=== PATIENT | male | born 1940 | race Caucasian/White ===

== ENCOUNTER 2017-08-11 14:33 | Inpatient (IN) | payer MEDICARE ==
[~2017-08-11] VITALS: Ht 177.8 cm; Wt 89.9 kg
[~2017-08-11 14:33] MED LIST: AMIO200T42 PO; AMIO400T5 PO; ARGI1000 PO; ASCO500T7 PO; ASPI-621 PO; ATOR40TA PO; CHOL400T5 PO; CYAN100T PO; DIGO125T10 PO; ESOM40CA PO; FERR47.57 PO; FOLI-17 PO; FURO40TA6 PO; GLUC1TAB22 PO; HYDR1TAB12 PO; ISOS120T2 PO; LUTE10TA2 PO; MAGN100T6 PO; MULT-257 PO; NITR0.4T28 SL; OMEG-13 PO; POTA10TA11 PO; PYRI100T4 PO; RANO500T2 PO; RIVA20TA PO; SELE200T10 PO; SOTA120T26 PO; UBID200C7 PO; VITA400C43 PO; ZINC220T PO
[2017-08-11] MEDS ORDERED: SODIUM CHLORIDE 0.9% 1,000ML IVBOLUS ONE ×3 (15:00→18:00)
[2017-08-11] MEDS ORDERED: ONDANSETRON 2MG/ML, 2ML IVPush ONE ×2 (15:00→17:30)
[2017-08-11] MEDS ORDERED: SODIUM CHLORIDE FLUSH 10ML SYR IVF ONE (15:00)
[2017-08-11 15:11] LABS: MEAN CORPUSCULAR HEMOGLOBIN 31.7 pg (27.5-34.5); MEAN CORPUSCULAR VOLUME 93.2 fL (81-97); MEAN PLATELET VOLUME 9.8 fL (7.4-10.4); PLATELET COUNT 118 x10^3/uL (130-400); RED BLOOD COUNT 4.62 x10^6/uL (4.38-5.82); RED CELL DISTRIBUTION WIDTH 15.5 % (9.4-14.8)
[2017-08-11] MEDS ORDERED: ATEN25TA PO ×2 (15:15)
[2017-08-11] MEDS ORDERED: ROSU20TA PO (15:15)
[2017-08-11] MEDS ORDERED: OMEP40CA6 PO (15:15)
[2017-08-11] MEDS ORDERED: METF500T4 PO (15:15)
[2017-08-11] MEDS ORDERED: LOSA50TA6 PO (15:15)
[2017-08-11] MEDS ORDERED: FURO-92 PO (15:15)
[2017-08-11 15:22] LABS: INTERNATIONAL NORMALIZED RATIO 1.22 (0.93-1.1); PROTHROMBIN TIME 12.6 Seconds (9.6-11.5)
[2017-08-11 15:23] LABS: ALBUMIN 2.8 g/dL (3.4-5.0); ANION GAP 13 mmol/L (5-15); CALCIUM 8.6 mg/dL (8.5-10.1); CHLORIDE 96 mmol/L (98-107)
[2017-08-11 15:25] LABS: MD YES
[2017-08-11 15:27] LABS: <PLATELET ESTIMATE> ADEQUATE; <PLT MORPHOLOGY> NORMAL PLT MORPH; ANISOCYTOSIS 1+; BAND#(MANUAL) 2.42 x10^3/uL; BANDS%(MANUAL) 11 % (0-7); LYMPH#(MANUAL) 1.54 x10^3/uL (1-3.4); LYMPHS% (MANUAL) 7 % (22-44); MONOS#(MANUAL) 0.88 x10^3/uL (0.3-2.7); MONOS% (MANUAL) 4 % (2-9); POLYCHROMASIA 1+; SEG#(MANUAL) 17.16 x10^3/uL (1.8-6.8); SEGS% (MANUAL) 78 % (42-75)
[2017-08-11 15:37] LABS: ALANINE AMINOTRANSFERASE 345 U/L (12-78); ALKALINE PHOSPHATASE 195 U/L (45-117); BILIRUBIN,TOTAL 6.2 mg/dL (0.2-1.0); CREATININE 4.79 mg/dL (0.7-1.3); TOTAL PROTEIN 7.7 g/dL (6.4-8.2)
[2017-08-11] MEDS ORDERED: ONDANSETRON 2MG/ML, 2ML ONE (15:37)
[2017-08-11] MEDS ORDERED: GLUCAGON 1 MG ONE (15:37)
[2017-08-11] MEDS ORDERED: CEFTRIAXONE PMX 1GM/50ML 50 ML ONE (15:38)
[2017-08-11] MEDS ORDERED: CEFTRIAXONE PMX 1GM/50ML 50 ML IVPB ONE (16:00)
[2017-08-11] MEDS ORDERED: NOREPINEPHRINE 4 MG in SODIUM CHLORIDE 0.9% 246 ML IV PRN ×2 (16:00→17:00)
[2017-08-11] MEDS ORDERED: GLUCAGON 1 MG IVPush ONE (16:00)
[2017-08-11] MEDS ORDERED: METRONIDAZOLE PMX 500MG/100ML 100 ML IV ONE (16:30)
[2017-08-11] MEDS ORDERED: MEROPENEM 500 MG in SODIUM CHLORIDE 0.9% 100 ML IV ONE (16:30)
[2017-08-11] MEDS: SODIUM CHLORIDE 0.9% 1,000 ML IV SCH (16:58)
[2017-08-11] MEDS ORDERED: BISACODYL 10 MG SUPP PR PRN (17:00)
[2017-08-11] MEDS ORDERED: HYDROmorphone 2 MG/ML, 1ML IVPush PRN (17:00)
[2017-08-11] MEDS ORDERED: DOCUSATE 100 MG CAPSULE PO PRN (17:00)
[2017-08-11] MEDS: MEROPENEM 500 MG in SODIUM CHLORIDE 0.9% 100 ML IV SCH (17:00)
[2017-08-11] MEDS ORDERED: ACETAMINOPHEN 325 MG TABLET PO PRN (17:00)
[2017-08-11] MEDS ORDERED: MORPHINE SULFATE 4 MG/ML, 1ML ONE (17:21)
[2017-08-11] MEDS: MORPHINE SULFATE 4 MG/ML, 1ML IVPush PRN ×2 (17:23→19:47)
[2017-08-11] MEDS ORDERED: METRONIDAZOLE PMX 500MG/100ML 100 ML ONE (17:49)
[2017-08-11] MEDS: METRONIDAZOLE PMX 500MG/100ML 100 ML IV SCH (17:50)
[2017-08-11 18:00] LABS: THYROID STIMULATING HORMONE 0.853 mIU/L (0.358-3.740)
[2017-08-11] MEDS ORDERED: ANTI INHIBITOR COAGULANT COMP IVPB ONE (19:00)
[2017-08-11] MEDS: HEPARIN 5,000 UNITS/ML, 1ML SQ SCH (19:00)
[2017-08-11] MEDS ORDERED: LIDOCAINE 1%, 20ML ONE (19:03)
[2017-08-11] MEDS: NOREPINEPHRINE 16 MG in SODIUM CHLORIDE 0.9% 234 ML IV PRN (20:02)
[2017-08-11] MEDS: FAMOTIDINE 20 MG/2 ML IVPush SCH (21:01)
[2017-08-11] MEDS ORDERED: FENTANYL PF 100 MCG/2ML ONE (21:24)
[2017-08-11] MEDS ORDERED: FENTANYL PF 100 MCG/2ML IVPush PRN (21:30)
[2017-08-11] MEDS: VASOPRESSIN 100 UNIT in SODIUM CHLORIDE 0.9% 495 ML IV PRN (21:53)
[2017-08-11] MEDS: FENTANYL PF 100 MCG/2ML IVPush PRN (21:57)
[2017-08-11 22:28] LABS: CULTURE INDICATED? YES; MICROSCOPIC INDICATED
[2017-08-12] MEDS: SODIUM CHLORIDE 0.9% 1,000 ML IV SCH ×6 (00:13→23:53)
[2017-08-12] MEDS: FENTANYL PF 100 MCG/2ML IVPush PRN ×7 (00:14→22:10)
[2017-08-12] MEDS: METRONIDAZOLE PMX 500MG/100ML 100 ML IV SCH ×4 (01:06→23:53)
[2017-08-12] MEDS: MEROPENEM 500 MG in SODIUM CHLORIDE 0.9% 100 ML IV SCH ×3 (02:06→22:19)
[2017-08-12 03:31] LABS: ALANINE AMINOTRANSFERASE 841 U/L (12-78); ALBUMIN 2.5 g/dL (3.4-5.0); ANION GAP 12 mmol/L (5-15); CALCIUM 7.4 mg/dL (8.5-10.1); CHLORIDE 106 mmol/L (98-107); CREATININE 5.08 mg/dL (0.7-1.3)
[2017-08-12 03:32] LABS: MEAN CORPUSCULAR HEMOGLOBIN 30.9 pg (27.5-34.5); MEAN CORPUSCULAR VOLUME 93.4 fL (81-97); MEAN PLATELET VOLUME 9.9 fL (7.4-10.4); PLATELET COUNT 124 x10^3/uL (130-400); RED BLOOD COUNT 4.37 x10^6/uL (4.38-5.82); RED CELL DISTRIBUTION WIDTH 15.9 % (9.4-14.8)
[2017-08-12 03:39] LABS: ALKALINE PHOSPHATASE 195 U/L (45-117); BILIRUBIN,TOTAL 5.6 mg/dL (0.2-1.0); TOTAL PROTEIN 6.9 g/dL (6.4-8.2)
[2017-08-12 03:48] LABS: MD YES
[2017-08-12 03:51] LABS: BAND#(MANUAL) 3.21 x10^3/uL; BANDS%(MANUAL) 15 % (0-7); LYMPH#(MANUAL) 1.71 x10^3/uL (1-3.4); LYMPHS% (MANUAL) 8 % (22-44); MONOS#(MANUAL) 0.64 x10^3/uL (0.3-2.7); MONOS% (MANUAL) 3 % (2-9); SEG#(MANUAL) 15.84 x10^3/uL (1.8-6.8); SEGS% (MANUAL) 74 % (42-75)
[2017-08-12 03:52] LABS: ANISOCYTOSIS 1+
[2017-08-12 03:53] LABS: <PLATELET ESTIMATE> DECREASED; LARGE PLATELETS 1+; POLYCHROMASIA 1+
[2017-08-12 04:00] VITALS: BP 113/52
[2017-08-12] MEDS: HEPARIN 5,000 UNITS/ML, 1ML SQ SCH ×2 (06:07→17:09)
[2017-08-12] MEDS: FAMOTIDINE 20 MG/2 ML IVPush SCH (09:45)
[2017-08-12] MEDS: NOREPINEPHRINE 16 MG in SODIUM CHLORIDE 0.9% 234 ML IV PRN ×2 (09:45→19:59)
[2017-08-12] MEDS: LORazepam 2 MG/ML, 1ML IVPush PRN (22:10)
[2017-08-13] MEDS: SODIUM CHLORIDE 0.9% 1,000 ML IV SCH (03:54)
[2017-08-13 04:00] VITALS: BP 110/52
[2017-08-13 04:25] LABS: MEAN CORPUSCULAR HEMOGLOBIN 31.2 pg (27.5-34.5); MEAN CORPUSCULAR HGB CONC 33.3 g/dL (33.2-36.2); MEAN CORPUSCULAR VOLUME 93.7 fL (81-97); RED BLOOD COUNT 3.98 x10^6/uL (4.38-5.82); RED CELL DISTRIBUTION WIDTH 16.1 % (9.4-14.8)
[2017-08-13 04:34] LABS: ALBUMIN 2.2 g/dL (3.4-5.0); ANION GAP 14 mmol/L (5-15); CALCIUM 6.6 mg/dL (8.5-10.1); CHLORIDE 107 mmol/L (98-107); CREATININE 4.99 mg/dL (0.7-1.3)
[2017-08-13 04:46] LABS: ALANINE AMINOTRANSFERASE 1016 U/L (12-78); ALKALINE PHOSPHATASE 192 U/L (45-117); BILIRUBIN,TOTAL 4.4 mg/dL (0.2-1.0); TOTAL PROTEIN 6.5 g/dL (6.4-8.2)
[2017-08-13] MEDS: HEPARIN 5,000 UNITS/ML, 1ML SQ SCH ×2 (05:27→18:22)
[2017-08-13 05:36] LABS: MD YES
[2017-08-13 05:40] LABS: MEAN PLATELET VOLUME 9.6 fL (7.4-10.4); PLATELET COUNT 82 x10^3/uL (130-400)
[2017-08-13 05:41] LABS: BAND#(MANUAL) 0.46 x10^3/uL; BANDS%(MANUAL) 3 % (0-7); MONOS#(MANUAL) 1.23 x10^3/uL (0.3-2.7); MONOS% (MANUAL) 8 % (2-9)
[2017-08-13 05:42] LABS: <PLATELET ESTIMATE> DECREASED; ANISOCYTOSIS 1+; LYMPH#(MANUAL) 2.16 x10^3/uL (1-3.4); LYMPHS% (MANUAL) 14 % (22-44); POLYCHROMASIA 1+; SEG#(MANUAL) 11.55 x10^3/uL (1.8-6.8); SEGS% (MANUAL) 75 % (42-75)
[2017-08-13 05:43] LABS: LARGE PLATELETS 1+
[2017-08-13] MEDS: FENTANYL PF 100 MCG/2ML IVPush PRN ×3 (08:51→18:21)
[2017-08-13] MEDS: METRONIDAZOLE PMX 500MG/100ML 100 ML IV SCH ×2 (13:51→20:39)
[2017-08-13] MEDS: FAMOTIDINE 20 MG/2 ML IVPush SCH (13:52)
[2017-08-13] MEDS: MEROPENEM 500 MG in SODIUM CHLORIDE 0.9% 100 ML IV SCH (16:52)
[2017-08-13] MEDS: LORazepam 2 MG/ML, 1ML IVPush PRN (20:31)
[2017-08-14] MEDS: MEROPENEM 500 MG in SODIUM CHLORIDE 0.9% 100 ML IV SCH ×2 (02:00→14:44)
[2017-08-14 03:45] LABS: MEAN CORPUSCULAR HEMOGLOBIN 31.3 pg (27.5-34.5); MEAN CORPUSCULAR HGB CONC 33.7 g/dL (33.2-36.2); MEAN CORPUSCULAR VOLUME 92.9 fL (81-97); MEAN PLATELET VOLUME 9.5 fL (7.4-10.4); PLATELET COUNT 82 x10^3/uL (130-400); RED BLOOD COUNT 4.11 x10^6/uL (4.38-5.82); RED CELL DISTRIBUTION WIDTH 16.1 % (9.4-14.8)
[2017-08-14 03:49] LABS: MD YES
[2017-08-14 03:50] LABS: ALANINE AMINOTRANSFERASE 817 U/L (12-78); ANION GAP 12 mmol/L (5-15); CALCIUM 7.2 mg/dL (8.5-10.1); CHLORIDE 104 mmol/L (98-107); CREATININE 5.13 mg/dL (0.7-1.3)
[2017-08-14 03:52] LABS: ALKALINE PHOSPHATASE 198 U/L (45-117); BILIRUBIN,TOTAL 3.9 mg/dL (0.2-1.0); TOTAL PROTEIN 6.1 g/dL (6.4-8.2)
[2017-08-14 04:00] VITALS: BP 99/48
[2017-08-14 04:03] LABS: BAND#(MANUAL) 1.27 x10^3/uL; BANDS%(MANUAL) 8 % (0-7); EOS#(MANUAL) 0.16 x10^3/uL (0.0-0.4); EOS% (MANUAL) 1 % (1-7); LYMPH#(MANUAL) 1.59 x10^3/uL (1-3.4); LYMPHS% (MANUAL) 10 % (22-44); MONOS% (MANUAL) 5 % (2-9); SEG#(MANUAL) 12.08 x10^3/uL (1.8-6.8); SEGS% (MANUAL) 76 % (42-75)
[2017-08-14 04:04] LABS: <PLATELET ESTIMATE> DECREASED; ANISOCYTOSIS 1+; LARGE PLATELETS 1+; POLYCHROMASIA 1+
[2017-08-14 04:05] LABS: TOXIC GRAN 1+
[2017-08-14] MEDS: METRONIDAZOLE PMX 500MG/100ML 100 ML IV SCH ×3 (05:22→20:19)
[2017-08-14] MEDS: HEPARIN 5,000 UNITS/ML, 1ML SQ SCH ×2 (05:22→18:02)
[2017-08-14] MEDS: FENTANYL PF 100 MCG/2ML IVPush PRN ×3 (08:03→19:54)
[2017-08-14] MEDS: FAMOTIDINE 20 MG/2 ML IVPush SCH (08:35)
[2017-08-14] MEDS: LORazepam 2 MG/ML, 1ML IVPush PRN (18:02)
[2017-08-15] MEDS: METRONIDAZOLE PMX 500MG/100ML 100 ML IV SCH ×2 (01:26→05:16)
[2017-08-15] MEDS: MEROPENEM 500 MG in SODIUM CHLORIDE 0.9% 100 ML IV SCH (01:51)
[2017-08-15 04:00] VITALS: BP 102/49
[2017-08-15 04:30] LABS: ALANINE AMINOTRANSFERASE 662 U/L (12-78); ANION GAP 10 mmol/L (5-15); CALCIUM 7.6 mg/dL (8.5-10.1); CHLORIDE 101 mmol/L (98-107); CREATININE 5.16 mg/dL (0.7-1.3)
[2017-08-15 04:32] LABS: ALKALINE PHOSPHATASE 197 U/L (45-117); BILIRUBIN,TOTAL 4.4 mg/dL (0.2-1.0); TOTAL PROTEIN 6.1 g/dL (6.4-8.2)
[2017-08-15] MEDS: HEPARIN 5,000 UNITS/ML, 1ML SQ SCH (05:31)
[2017-08-15 05:43] LABS: MEAN CORPUSCULAR HEMOGLOBIN 31.1 pg (27.5-34.5); MEAN CORPUSCULAR HGB CONC 34.3 g/dL (33.2-36.2); MEAN CORPUSCULAR VOLUME 90.6 fL (81-97); RED BLOOD COUNT 4.41 x10^6/uL (4.38-5.82); RED CELL DISTRIBUTION WIDTH 15.9 % (9.4-14.8)
[2017-08-15 05:46] LABS: MD YES; MEAN PLATELET VOLUME 9.1 fL (7.4-10.4); PLATELET COUNT 67 x10^3/uL (130-400)
[2017-08-15 05:47] LABS: BAND#(MANUAL) 0.51 x10^3/uL; BANDS%(MANUAL) 3 % (0-7); EOS#(MANUAL) 0.17 x10^3/uL (0.0-0.4); EOS% (MANUAL) 1 % (1-7); LYMPH#(MANUAL) 1.86 x10^3/uL (1-3.4); LYMPHS% (MANUAL) 11 % (22-44); MONOS#(MANUAL) 1.35 x10^3/uL (0.3-2.7); MONOS% (MANUAL) 8 % (2-9)
[2017-08-15 05:48] LABS: SEG#(MANUAL) 13.01 x10^3/uL (1.8-6.8); SEGS% (MANUAL) 77 % (42-75)
[2017-08-15 05:49] LABS: <PLATELET ESTIMATE> DECREASED; LARGE PLATELETS 1+; TOXIC GRAN 1+
[2017-08-15 05:50] LABS: ANISOCYTOSIS 1+; POLYCHROMASIA 1+
[2017-08-15] MEDS: FENTANYL PF 100 MCG/2ML IVPush PRN ×3 (08:05→22:22)
[2017-08-15] MEDS: FAMOTIDINE 20 MG/2 ML IVPush SCH (08:05)
[2017-08-15] MEDS ORDERED: CEFTRIAXONE PMX 2GM/50ML 50 ML IVPB SCH (09:30)
[2017-08-15 14:53] LABS: HIT RESULT NEGATIVE (NEGATIVE)
[2017-08-16 04:00] VITALS: BP 127/72
[2017-08-16] MEDS: FENTANYL PF 100 MCG/2ML IVPush PRN ×2 (04:14→22:17)
[2017-08-16 04:35] LABS: MEAN CORPUSCULAR HEMOGLOBIN 31.8 pg (27.5-34.5); MEAN CORPUSCULAR HGB CONC 34.8 g/dL (33.2-36.2); MEAN CORPUSCULAR VOLUME 91.4 fL (81-97); RED BLOOD COUNT 4.28 x10^6/uL (4.38-5.82); RED CELL DISTRIBUTION WIDTH 15.8 % (9.4-14.8)
[2017-08-16 04:39] LABS: ALANINE AMINOTRANSFERASE 472 U/L (12-78); ALBUMIN 1.8 g/dL (3.4-5.0); ANION GAP 12 mmol/L (5-15); CALCIUM 7.3 mg/dL (8.5-10.1); CHLORIDE 105 mmol/L (98-107); CREATININE 4.55 mg/dL (0.7-1.3)
[2017-08-16 04:41] LABS: ALKALINE PHOSPHATASE 182 U/L (45-117); BILIRUBIN,TOTAL 3.8 mg/dL (0.2-1.0); TOTAL PROTEIN 5.9 g/dL (6.4-8.2)
[2017-08-16 05:05] LABS: MD YES; MEAN PLATELET VOLUME 9.5 fL (7.4-10.4); PLATELET COUNT 65 x10^3/uL (130-400)
[2017-08-16 05:06] LABS: BAND#(MANUAL) 0.72 x10^3/uL; BANDS%(MANUAL) 4 % (0-7); EOS#(MANUAL) 0.36 x10^3/uL (0.0-0.4); EOS% (MANUAL) 2 % (1-7); LYMPH#(MANUAL) 1.97 x10^3/uL (1-3.4); LYMPHS% (MANUAL) 11 % (22-44); MONOS#(MANUAL) 1.07 x10^3/uL (0.3-2.7); MONOS% (MANUAL) 6 % (2-9)
[2017-08-16 05:07] LABS: <PLATELET ESTIMATE> DECREASED; ANISOCYTOSIS 1+; BASOS#(MANUAL) 0.18 x10^3/uL (0-0.1); BASOS% (MANUAL) 1 % (0-1); LARGE PLATELETS 1+; POLYCHROMASIA 1+; SEGS% (MANUAL) 76 % (42-75)
[2017-08-16] MEDS: FAMOTIDINE 20 MG/2 ML IVPush SCH (08:51)
[2017-08-16] MEDS: OXYcodone IR 5MG TABLET PO PRN (08:51)
[2017-08-16] MEDS: POTASSIUM CHLORIDE 10% 40 MEQ/30 ML UDC PO SCH ×2 (08:51→21:31)
[2017-08-16] MEDS: CEFTRIAXONE 2,000 MG in DEXTROSE 5% 50 ML IVPB SCH (08:53)
[2017-08-16] MEDS: METRONIDAZOLE PMX 500MG/100ML 100 ML IV SCH ×2 (10:21→17:30)
[2017-08-17] MEDS: METRONIDAZOLE PMX 500MG/100ML 100 ML IV SCH ×3 (01:27→17:58)
[2017-08-17 03:42] LABS: MEAN CORPUSCULAR HEMOGLOBIN 30.9 pg (27.5-34.5); MEAN CORPUSCULAR HGB CONC 34.1 g/dL (33.2-36.2); MEAN CORPUSCULAR VOLUME 90.4 fL (81-97); RED BLOOD COUNT 4.51 x10^6/uL (4.38-5.82); RED CELL DISTRIBUTION WIDTH 16.2 % (9.4-14.8)
[2017-08-17 03:52] LABS: ALANINE AMINOTRANSFERASE 363 U/L (12-78); ALBUMIN 2.1 g/dL (3.4-5.0); ANION GAP 11 mmol/L (5-15); CALCIUM 8.6 mg/dL (8.5-10.1); CHLORIDE 103 mmol/L (98-107)
[2017-08-17 03:54] LABS: ALKALINE PHOSPHATASE 173 U/L (45-117); BILIRUBIN,TOTAL 3.9 mg/dL (0.2-1.0); TOTAL PROTEIN 6.6 g/dL (6.4-8.2)
[2017-08-17 03:56] LABS: MD YES; MEAN PLATELET VOLUME 9.9 fL (7.4-10.4); PLATELET COUNT 87 x10^3/uL (130-400)
[2017-08-17 03:59] LABS: BAND#(MANUAL) 0.56 x10^3/uL; BANDS%(MANUAL) 3 % (0-7); EOS#(MANUAL) 0.38 x10^3/uL (0.0-0.4); EOS% (MANUAL) 2 % (1-7); LYMPH#(MANUAL) 3.01 x10^3/uL (1-3.4); LYMPHS% (MANUAL) 16 % (22-44); MONOS#(MANUAL) 0.56 x10^3/uL (0.3-2.7); MONOS% (MANUAL) 3 % (2-9); SEG#(MANUAL) 14.29 x10^3/uL (1.8-6.8); SEGS% (MANUAL) 76 % (42-75)
[2017-08-17 04:00] VITALS: BP 115/54
[2017-08-17 04:00] LABS: <PLATELET ESTIMATE> DECREASED; ANISOCYTOSIS 1+; LARGE PLATELETS 1+; POLYCHROMASIA 1+
[2017-08-17] MEDS: PANTOPRAZOLE 40 MG IV IVPush SCH (08:12)
[2017-08-17] MEDS: POLYETHYLENE GLYCOL 17 GM PACKET PO PRN (08:12)
[2017-08-17] MEDS: OXYcodone IR 5MG TABLET PO PRN ×2 (08:13→16:20)
[2017-08-17] MEDS: CEFTRIAXONE 2,000 MG in DEXTROSE 5% 50 ML IVPB SCH (09:48)
[2017-08-17] MEDS: VASOPRESSIN 100 UNIT in SODIUM CHLORIDE 0.9% 495 ML IV PRN (09:49)
[2017-08-17] MEDS ORDERED: LIDOCAINE GEL 2%, 5ML ONE (12:10)
[2017-08-17] MEDS ORDERED: BENZOCAINE 20% SPRAY 0.5ML ONE (12:10)
[2017-08-17] MEDS: FENTANYL PF 100 MCG/2ML IVPush PRN ×2 (12:30→13:30)
[2017-08-17] MEDS ORDERED: FENTANYL PF 100 MCG/2ML ONE (12:35)
[2017-08-17] MEDS: NOREPINEPHRINE 16 MG in SODIUM CHLORIDE 0.9% 234 ML IV PRN (23:51)
[2017-08-18] MEDS: METRONIDAZOLE PMX 500MG/100ML 100 ML IV SCH ×3 (01:53→17:04)
[2017-08-18 03:44] LABS: MEAN CORPUSCULAR HEMOGLOBIN 30.6 pg (27.5-34.5); MEAN CORPUSCULAR HGB CONC 33.3 g/dL (33.2-36.2); MEAN PLATELET VOLUME 9.8 fL (7.4-10.4); PLATELET COUNT 96 x10^3/uL (130-400); RED BLOOD COUNT 4.37 x10^6/uL (4.38-5.82); RED CELL DISTRIBUTION WIDTH 16.3 % (9.4-14.8)
[2017-08-18 04:00] VITALS: BP 147/76
[2017-08-18 04:46] LABS: BASOPHILS # (AUTO) 0.13 x10^3/uL (0-0.1); BASOPHILS % (AUTO) 1 % (0-1); EOSINOPHILS # (AUTO) 0.22 x10^3/uL (0-0.4); EOSINOPHILS % (AUTO) 1 % (1-7); LYMPHOCYTES # (AUTO) 1.84 x10^3/uL (1-3.4); LYMPHOCYTES % (AUTO) 11 % (22-44); MD SCAN; MONOCYTES # (AUTO) 1.66 x10^3/uL (0.2-0.8); MONOCYTES % (AUTO) 10 % (2-9); NEUTROPHILS # (AUTO) 12.91 x10^3/uL (1.8-6.8); NEUTROPHILS % (AUTO) 77 % (42-75)
[2017-08-18 05:05] LABS: ALANINE AMINOTRANSFERASE 257 U/L (12-78); CHLORIDE 105 mmol/L (98-107)
[2017-08-18 05:09] LABS: ALBUMIN 2.1 g/dL (3.4-5.0); ALKALINE PHOSPHATASE 164 U/L (45-117); ANION GAP 14 mmol/L (5-15); BILIRUBIN,TOTAL 3.6 mg/dL (0.2-1.0); CALCIUM 8.3 mg/dL (8.5-10.1); CREATININE 9.47 mg/dL (0.7-1.3)
[2017-08-18] MEDS: CEFTRIAXONE 2,000 MG in DEXTROSE 5% 50 ML IVPB SCH (11:40)
[2017-08-18] MEDS: SEVELAMER 2.4 GM POWD.PACK PO SCH ×3 (11:41→20:19)
[2017-08-18] MEDS: PANTOPRAZOLE 40 MG IV IVPush SCH (11:41)
[2017-08-18] MEDS: OXYcodone IR 5MG TABLET PO PRN ×2 (17:04→23:13)
[2017-08-19] MEDS: METRONIDAZOLE PMX 500MG/100ML 100 ML IV SCH ×3 (00:59→18:03)
[2017-08-19 03:03] LABS: ALANINE AMINOTRANSFERASE 187 U/L (12-78); ALBUMIN 2.1 g/dL (3.4-5.0); ANION GAP 9 mmol/L (5-15); CALCIUM 7.8 mg/dL (8.5-10.1); CHLORIDE 98 mmol/L (98-107); CREATININE 6.88 mg/dL (0.7-1.3)
[2017-08-19 03:05] LABS: ALKALINE PHOSPHATASE 175 U/L (45-117); TOTAL PROTEIN 7.1 g/dL (6.4-8.2)
[2017-08-19 03:08] LABS: MEAN CORPUSCULAR HEMOGLOBIN 30.7 pg (27.5-34.5); MEAN CORPUSCULAR VOLUME 90.4 fL (81-97); MEAN PLATELET VOLUME 9.3 fL (7.4-10.4); PLATELET COUNT 103 x10^3/uL (130-400); RED BLOOD COUNT 4.63 x10^6/uL (4.38-5.82); RED CELL DISTRIBUTION WIDTH 16.1 % (9.4-14.8)
[2017-08-19 03:20] LABS: MD YES
[2017-08-19 03:23] LABS: BAND#(MANUAL) 0.99 x10^3/uL; BANDS%(MANUAL) 4 % (0-7); EOS% (MANUAL) 2 % (1-7); LYMPH#(MANUAL) 2.73 x10^3/uL (1-3.4); LYMPHS% (MANUAL) 11 % (22-44); MONOS#(MANUAL) 1.98 x10^3/uL (0.3-2.7); MONOS% (MANUAL) 8 % (2-9); SEGS% (MANUAL) 75 % (42-75)
[2017-08-19 03:24] LABS: <PLATELET ESTIMATE> DECREASED; ANISOCYTOSIS 1+; LARGE PLATELETS 1+
[2017-08-19] MEDS: FENTANYL PF 100 MCG/2ML IVPush PRN (03:48)
[2017-08-19 04:00] VITALS: BP 111/51
[2017-08-19] MEDS: NOREPINEPHRINE 16 MG in SODIUM CHLORIDE 0.9% 234 ML IV PRN (05:11)
[2017-08-19] MEDS: CEFTRIAXONE 2,000 MG in DEXTROSE 5% 50 ML IVPB SCH (08:40)
[2017-08-19] MEDS: SEVELAMER 2.4 GM POWD.PACK PO SCH ×3 (08:40→21:00)
[2017-08-19] MEDS: PANTOPRAZOLE 40 MG IV IVPush SCH (08:40)
[2017-08-20] MEDS: METRONIDAZOLE PMX 500MG/100ML 100 ML IV SCH ×3 (01:11→21:11)
[2017-08-20 04:30] VITALS: BP 97/67
[2017-08-20 06:01] LABS: MEAN CORPUSCULAR HEMOGLOBIN 31.4 pg (27.5-34.5); MEAN CORPUSCULAR HGB CONC 34.3 g/dL (33.2-36.2); MEAN CORPUSCULAR VOLUME 91.4 fL (81-97); MEAN PLATELET VOLUME 10.3 fL (7.4-10.4); PLATELET COUNT 139 x10^3/uL (130-400); RED BLOOD COUNT 4.46 x10^6/uL (4.38-5.82); RED CELL DISTRIBUTION WIDTH 16.5 % (9.4-14.8)
[2017-08-20 06:04] LABS: INTERNATIONAL NORMALIZED RATIO 1.41 (0.93-1.1); PROTHROMBIN TIME 14.6 Seconds (9.6-11.5)
[2017-08-20 06:11] LABS: ALBUMIN 1.9 g/dL (3.4-5.0); ANION GAP 14 mmol/L (5-15); CHLORIDE 100 mmol/L (98-107)
[2017-08-20 06:15] LABS: ALANINE AMINOTRANSFERASE 121 U/L (12-78); ALKALINE PHOSPHATASE 154 U/L (45-117); BILIRUBIN,TOTAL 4.9 mg/dL (0.2-1.0); CREATININE 8.93 mg/dL (0.7-1.3); TOTAL PROTEIN 6.8 g/dL (6.4-8.2)
[2017-08-20 06:19] LABS: MD YES
[2017-08-20 06:21] LABS: ANISOCYTOSIS 1+; EOS#(MANUAL) 0.22 x10^3/uL (0.0-0.4); EOS% (MANUAL) 1 % (1-7); LYMPH#(MANUAL) 2.41 x10^3/uL (1-3.4); LYMPHS% (MANUAL) 11 % (22-44); METAMYELOCYTES# (MANUAL) 0.22 x10^3/uL (0-0); METAMYELOCYTES% (MANUAL) 1 % (0-1); MONOS#(MANUAL) 1.97 x10^3/uL (0.3-2.7); MONOS% (MANUAL) 9 % (2-9); MYELOCYTES# (MANUAL) 0.22 x10^3/uL (0-0); MYELOCYTES% (MANUAL) 1 % (0-0); POLYCHROMASIA 1+; SEG#(MANUAL) 16.86 x10^3/uL (1.8-6.8); SEGS% (MANUAL) 77 % (42-75)
[2017-08-20 06:23] LABS: <PLATELET ESTIMATE> ADEQUATE; <PLT MORPHOLOGY> NORMAL PLT MORPH
[2017-08-20] MEDS: SEVELAMER 2.4 GM POWD.PACK PO SCH ×3 (09:00→21:00)
[2017-08-20] MEDS: ALBUMIN HUMAN 25% 100 ML IV PRN ×2 (09:13→11:45)
[2017-08-20] MEDS: ALBUMIN HUMAN 25% 50 ML IV PRN (09:45)
[2017-08-20] MEDS: PANTOPRAZOLE 40 MG IV IVPush SCH (13:10)
[2017-08-20] MEDS: CEFTRIAXONE 2,000 MG in DEXTROSE 5% 50 ML IVPB SCH (14:28)
[2017-08-21 04:00] VITALS: BP 111/44
[2017-08-21 04:08] LABS: MEAN CORPUSCULAR HEMOGLOBIN 30.6 pg (27.5-34.5); MEAN CORPUSCULAR HGB CONC 33.6 g/dL (33.2-36.2); MEAN CORPUSCULAR VOLUME 90.9 fL (81-97); MEAN PLATELET VOLUME 10.4 fL (7.4-10.4); PLATELET COUNT 145 x10^3/uL (130-400); RED CELL DISTRIBUTION WIDTH 15.9 % (9.4-14.8)
[2017-08-21 04:19] LABS: ALANINE AMINOTRANSFERASE 87 U/L (12-78); ALBUMIN 2.7 g/dL (3.4-5.0); ANION GAP 9 mmol/L (5-15); CHLORIDE 97 mmol/L (98-107); CREATININE 7.65 mg/dL (0.7-1.3)
[2017-08-21 04:22] LABS: ALKALINE PHOSPHATASE 128 U/L (45-117); BILIRUBIN,TOTAL 6.1 mg/dL (0.2-1.0); TOTAL PROTEIN 6.8 g/dL (6.4-8.2)
[2017-08-21] MEDS: METRONIDAZOLE PMX 500MG/100ML 100 ML IV SCH ×3 (04:29→20:12)
[2017-08-21 05:08] LABS: MD YES
[2017-08-21 05:10] LABS: ANISOCYTOSIS 1+; BAND#(MANUAL) 0.36 x10^3/uL; BANDS%(MANUAL) 2 % (0-7); EOS#(MANUAL) 0.18 x10^3/uL (0.0-0.4); EOS% (MANUAL) 1 % (1-7); LYMPH#(MANUAL) 2.52 x10^3/uL (1-3.4); LYMPHS% (MANUAL) 14 % (22-44); MONOS% (MANUAL) 5 % (2-9); POLYCHROMASIA 1+; SEG#(MANUAL) 14.04 x10^3/uL (1.8-6.8); SEGS% (MANUAL) 78 % (42-75)
[2017-08-21 05:11] LABS: <PLATELET ESTIMATE> DECREASED; LARGE PLATELETS 1+
[2017-08-21] MEDS: PANTOPRAZOLE 40 MG IV IVPush SCH (09:40)
[2017-08-21] MEDS: SEVELAMER 2.4 GM POWD.PACK PO SCH ×2 (09:40→15:53)
[2017-08-21] MEDS: CEFTRIAXONE 2,000 MG in DEXTROSE 5% 50 ML IVPB SCH (14:07)
[2017-08-21 14:27] VITALS: BP 122/74
[2017-08-21 20:00] VITALS: BP 118/68
[2017-08-21] MEDS: OXYcodone IR 5MG TABLET PO PRN (23:32)
[2017-08-22 01:55] VITALS: BP 107/68
[2017-08-22] MEDS: METRONIDAZOLE PMX 500MG/100ML 100 ML IV SCH ×2 (04:18→15:33)
[2017-08-22 04:43] LABS: ALANINE AMINOTRANSFERASE 82 U/L (12-78); ALBUMIN 2.4 g/dL (3.4-5.0); ANION GAP 13 mmol/L (5-15); CALCIUM 8.2 mg/dL (8.5-10.1); CHLORIDE 96 mmol/L (98-107)
[2017-08-22 04:46] LABS: ALKALINE PHOSPHATASE 127 U/L (45-117); CREATININE 9.44 mg/dL (0.7-1.3); TOTAL PROTEIN 6.7 g/dL (6.4-8.2)
[2017-08-22 04:48] LABS: MEAN CORPUSCULAR HEMOGLOBIN 31.6 pg (27.5-34.5); MEAN CORPUSCULAR HGB CONC 34.3 g/dL (33.2-36.2); MEAN CORPUSCULAR VOLUME 91.9 fL (81-97); MEAN PLATELET VOLUME 10.4 fL (7.4-10.4); PLATELET COUNT 176 x10^3/uL (130-400); RED BLOOD COUNT 4.13 x10^6/uL (4.38-5.82); RED CELL DISTRIBUTION WIDTH 16.5 % (9.4-14.8)
[2017-08-22 05:39] LABS: MD YES
[2017-08-22 05:41] LABS: BAND#(MANUAL) 0.19 x10^3/uL; BANDS%(MANUAL) 1 % (0-7); LYMPH#(MANUAL) 2.84 x10^3/uL (1-3.4); LYMPHS% (MANUAL) 15 % (22-44); METAMYELOCYTES# (MANUAL) 0.19 x10^3/uL (0-0); METAMYELOCYTES% (MANUAL) 1 % (0-1); MONOS#(MANUAL) 1.13 x10^3/uL (0.3-2.7); MONOS% (MANUAL) 6 % (2-9); SEG#(MANUAL) 14.55 x10^3/uL (1.8-6.8); SEGS% (MANUAL) 77 % (42-75)
[2017-08-22 05:42] LABS: <PLATELET ESTIMATE> ADEQUATE; ANISOCYTOSIS 1+; LARGE PLATELETS 1+
[2017-08-22] MEDS: SEVELAMER 2.4 GM POWD.PACK PO SCH ×3 (07:00→17:13)
[2017-08-22] MEDS ORDERED: PROPOFOL 10 MG/ML, 20ML ONE (07:14)
[2017-08-22] MEDS ORDERED: FENTANYL PF 250 MCG/5ML ONE (07:14)
[2017-08-22] MEDS ORDERED: LABETALOL 5MG/ML, 20ML IV PRN (07:30)
[2017-08-22] MEDS ORDERED: OXYcodone 5 MG/5 ML ORAL.SOL UDC PO PRN (07:30)
[2017-08-22] MEDS ORDERED: ALBUTEROL SULFATE 2.5 MG/3 ML NPPB PRN (07:30)
[2017-08-22] MEDS ORDERED: hydrALAzine 20 MG/ML, 1ML IV PRN (07:30)
[2017-08-22] MEDS ORDERED: MEPERIDINE/PF 25MG/0.5ML IVPush PRN (07:30)
[2017-08-22] MEDS ORDERED: FENTANYL PF 100 MCG/2ML IV PRN (07:30)
[2017-08-22] MEDS ORDERED: morphine SULFATE 10 MG/ML, 1ML IV PRN (07:30)
[2017-08-22] MEDS ORDERED: HYDROmorphone 1 MG/ML, 1ML IV PRN (07:30)
[2017-08-22] MEDS ORDERED: PROMETHAZINE 25 MG/ML, 1ML IV PRN (07:30)
[2017-08-22] MEDS ORDERED: ONDANSETRON 2MG/ML, 2ML IVPush PRN (07:30)
[2017-08-22] MEDS ORDERED: PROMETHAZINE 12.5 MG SUPP PR PRN (07:30)
[2017-08-22] MEDS ORDERED: ROCURONIUM 10MG/ML,5ML ONE (07:33)
[2017-08-22] MEDS ORDERED: GLYCOPYRROLATE 0.4 MG/2 ML, 2ML ONE (07:35)
[2017-08-22] MEDS ORDERED: NEOSTIGMINE 1 MG/ML, 10ML ONE (07:35)
[2017-08-22] MEDS ORDERED: PHENYLEPHRINE 10 MG/ML ONE (07:52)
[2017-08-22] MEDS ORDERED: SODIUM CHLORIDE 0.9% PF 10ML ONE (08:10)
[2017-08-22] MEDS ORDERED: VASOPRESSIN 20 UNIT/ML, 1ML ONE (08:10)
[2017-08-22] MEDS: PANTOPRAZOLE 40 MG IV IVPush SCH (09:31)
[2017-08-22 09:39] VITALS: BP 122/71
[2017-08-22] MEDS ORDERED: ALBUMIN HUMAN 25% 100 ML IV STA (10:57)
[2017-08-22] MEDS ORDERED: ALBUMIN HUMAN 25% 100 ML IV ONE (11:02)
[2017-08-22] MEDS: ALBUMIN HUMAN 25% 100 ML IV PRN ×3 (11:15→14:15)
[2017-08-22 14:33] VITALS: BP 163/101
[2017-08-22 14:46] VITALS: BP 116/69
[2017-08-22] MEDS: CEFTRIAXONE 2,000 MG in DEXTROSE 5% 50 ML IVPB SCH (17:06)
[2017-08-22 19:54] VITALS: BP 109/70
[2017-08-23] MEDS: METRONIDAZOLE PMX 500MG/100ML 100 ML IV SCH ×3 (00:53→15:51)
[2017-08-23 00:58] VITALS: BP 115/72
[2017-08-23 04:49] LABS: MEAN CORPUSCULAR HEMOGLOBIN 31.8 pg (27.5-34.5); MEAN CORPUSCULAR HGB CONC 34.4 g/dL (33.2-36.2); MEAN CORPUSCULAR VOLUME 92.4 fL (81-97); PLATELET COUNT 144 x10^3/uL (130-400); RED BLOOD COUNT 3.75 x10^6/uL (4.38-5.82); RED CELL DISTRIBUTION WIDTH 17.7 % (9.4-14.8)
[2017-08-23 05:02] LABS: ALANINE AMINOTRANSFERASE 75 U/L (12-78); ALBUMIN 2.9 g/dL (3.4-5.0); ANION GAP 12 mmol/L (5-15); CALCIUM 8.2 mg/dL (8.5-10.1); CHLORIDE 98 mmol/L (98-107); CREATININE 7.21 mg/dL (0.7-1.3)
[2017-08-23 05:05] LABS: ALKALINE PHOSPHATASE 113 U/L (45-117); BILIRUBIN,TOTAL 7.9 mg/dL (0.2-1.0); MD YES; TOTAL PROTEIN 6.9 g/dL (6.4-8.2)
[2017-08-23 05:08] LABS: <PLATELET ESTIMATE> ADEQUATE; ANISOCYTOSIS 1+; BAND#(MANUAL) 0.17 x10^3/uL; BANDS%(MANUAL) 1 % (0-7); BASOS#(MANUAL) 0.33 x10^3/uL (0-0.1); BASOS% (MANUAL) 2 % (0-1); EOS#(MANUAL) 0.17 x10^3/uL (0.0-0.4); EOS% (MANUAL) 1 % (1-7); LARGE PLATELETS 1+; LYMPH#(MANUAL) 2.82 x10^3/uL (1-3.4); LYMPHS% (MANUAL) 17 % (22-44); METAMYELOCYTES# (MANUAL) 0.17 x10^3/uL (0-0); METAMYELOCYTES% (MANUAL) 1 % (0-1); MONOS#(MANUAL) 1.16 x10^3/uL (0.3-2.7); MONOS% (MANUAL) 7 % (2-9); MYELOCYTES# (MANUAL) 0.17 x10^3/uL (0-0); MYELOCYTES% (MANUAL) 1 % (0-0); POLYCHROMASIA 1+; SEG#(MANUAL) 11.62 x10^3/uL (1.8-6.8); SEGS% (MANUAL) 70 % (42-75)
[2017-08-23 08:00] VITALS: BP 112/70
[2017-08-23] MEDS: SEVELAMER 2.4 GM POWD.PACK PO SCH ×3 (09:25→15:51)
[2017-08-23] MEDS: PANTOPRAZOLE 40 MG IV IVPush SCH (09:25)
[2017-08-23 14:00] VITALS: BP 121/74
[2017-08-23] MEDS: OXYcodone IR 5MG TABLET PO PRN ×2 (14:31→21:22)
[2017-08-23] MEDS: CEFTRIAXONE 2,000 MG in DEXTROSE 5% 50 ML IVPB SCH (14:54)
[2017-08-23 21:09] VITALS: BP 128/81
[2017-08-24] MEDS: METRONIDAZOLE PMX 500MG/100ML 100 ML IV SCH ×3 (00:17→16:40)
[2017-08-24] MEDS: OXYcodone IR 5MG TABLET PO PRN ×2 (01:38→19:53)
[2017-08-24 01:50] VITALS: BP 119/69
[2017-08-24 05:48] LABS: MEAN CORPUSCULAR VOLUME 91.3 fL (81-97); MEAN PLATELET VOLUME 10.5 fL (7.4-10.4); PLATELET COUNT 179 x10^3/uL (130-400); RED BLOOD COUNT 3.75 x10^6/uL (4.38-5.82); RED CELL DISTRIBUTION WIDTH 17.9 % (9.4-14.8)
[2017-08-24 05:59] LABS: ALANINE AMINOTRANSFERASE 84 U/L (12-78); ALBUMIN 2.7 g/dL (3.4-5.0); ANION GAP 12 mmol/L (5-15); CALCIUM 8.2 mg/dL (8.5-10.1); CHLORIDE 99 mmol/L (98-107)
[2017-08-24 06:06] LABS: ALKALINE PHOSPHATASE 140 U/L (45-117); BILIRUBIN,TOTAL 6.7 mg/dL (0.2-1.0); CREATININE 9.04 mg/dL (0.7-1.3); TOTAL PROTEIN 6.9 g/dL (6.4-8.2)
[2017-08-24 06:19] LABS: MD YES
[2017-08-24 06:22] LABS: ANISOCYTOSIS 1+; BAND#(MANUAL) 0.34 x10^3/uL; BANDS%(MANUAL) 2 % (0-7); EOS#(MANUAL) 0.17 x10^3/uL (0.0-0.4); EOS% (MANUAL) 1 % (1-7); LYMPH#(MANUAL) 2.21 x10^3/uL (1-3.4); LYMPHS% (MANUAL) 13 % (22-44); MONOS#(MANUAL) 1.87 x10^3/uL (0.3-2.7); MONOS% (MANUAL) 11 % (2-9); MYELOCYTES# (MANUAL) 0.17 x10^3/uL (0-0); MYELOCYTES% (MANUAL) 1 % (0-0); POLYCHROMASIA 1+; SEG#(MANUAL) 12.24 x10^3/uL (1.8-6.8); SEGS% (MANUAL) 72 % (42-75)
[2017-08-24 06:23] LABS: <PLATELET ESTIMATE> ADEQUATE; LARGE PLATELETS 1+
[2017-08-24 07:30] VITALS: BP 128/79
[2017-08-24] MEDS: PANTOPRAZOLE 40 MG IV IVPush SCH (08:00)
[2017-08-24] MEDS: SEVELAMER 2.4 GM POWD.PACK PO SCH ×3 (08:01→17:45)
[2017-08-24 14:28] VITALS: BP 93/52
[2017-08-24] MEDS ORDERED: ACETAMINOPHEN 325 MG TABLET PO PRN (15:00)
[2017-08-24] MEDS: CEFTRIAXONE 2,000 MG in DEXTROSE 5% 50 ML IVPB SCH (16:01)
[2017-08-24 17:54] VITALS: BP 92/58
[2017-08-24 19:44] VITALS: BP 119/74
[2017-08-25] MEDS: METRONIDAZOLE PMX 500MG/100ML 100 ML IV SCH ×3 (00:20→16:54)
[2017-08-25] MEDS: OXYcodone IR 5MG TABLET PO PRN ×3 (00:23→16:54)
[2017-08-25 01:31] VITALS: BP 110/71
[2017-08-25 05:23] LABS: INTERNATIONAL NORMALIZED RATIO 1.68 (0.93-1.1); PROTHROMBIN TIME 17.3 Seconds (9.6-11.5)
[2017-08-25 05:24] LABS: MEAN CORPUSCULAR HEMOGLOBIN 31.6 pg (27.5-34.5); MEAN CORPUSCULAR HGB CONC 34.3 g/dL (33.2-36.2); MEAN CORPUSCULAR VOLUME 92.2 fL (81-97); PLATELET COUNT 135 x10^3/uL (130-400); RED BLOOD COUNT 3.51 x10^6/uL (4.38-5.82); RED CELL DISTRIBUTION WIDTH 18.2 % (9.4-14.8)
[2017-08-25 05:30] LABS: CHLORIDE 97 mmol/L (98-107)
[2017-08-25 05:39] LABS: ALANINE AMINOTRANSFERASE 95 U/L (12-78); ALBUMIN 2.5 g/dL (3.4-5.0); ALKALINE PHOSPHATASE 177 U/L (45-117); ANION GAP 11 mmol/L (5-15); BILIRUBIN,TOTAL 5.7 mg/dL (0.2-1.0); CALCIUM 8.2 mg/dL (8.5-10.1); CREATININE 7.22 mg/dL (0.7-1.3); TOTAL PROTEIN 6.6 g/dL (6.4-8.2)
[2017-08-25 05:50] LABS: MD YES
[2017-08-25 05:52] LABS: ANISOCYTOSIS 1+; BANDS%(MANUAL) 2 % (0-7); EOS#(MANUAL) 0.45 x10^3/uL (0.0-0.4); EOS% (MANUAL) 3 % (1-7); LYMPH#(MANUAL) 1.35 x10^3/uL (1-3.4); LYMPHS% (MANUAL) 9 % (22-44); METAMYELOCYTES# (MANUAL) 0.15 x10^3/uL (0-0); METAMYELOCYTES% (MANUAL) 1 % (0-1); MONOS% (MANUAL) 2 % (2-9); SEG#(MANUAL) 12.45 x10^3/uL (1.8-6.8); SEGS% (MANUAL) 83 % (42-75)
[2017-08-25 05:53] LABS: <PLATELET ESTIMATE> ADEQUATE; LARGE PLATELETS 1+; POLYCHROMASIA 1+
[2017-08-25] MEDS: SEVELAMER 2.4 GM POWD.PACK PO SCH ×3 (07:00→16:00)
[2017-08-25 09:14] VITALS: BP 115/67
[2017-08-25] MEDS: FENTANYL PF 100 MCG/2ML IVPush PRN (09:32)
[2017-08-25 15:15] VITALS: BP 126/76
[2017-08-25] MEDS: CEFTRIAXONE 2,000 MG in DEXTROSE 5% 50 ML IVPB SCH (15:47)
[2017-08-25 19:42] VITALS: BP 114/73
[2017-08-26] VITALS (10 sets, daily range): BP systolic 110–129; BP diastolic 67–78
[2017-08-26] MEDS: METRONIDAZOLE PMX 500MG/100ML 100 ML IV SCH ×3 (01:45→18:24)
[2017-08-26] MEDS: OXYcodone IR 5MG TABLET PO PRN (03:20)
[2017-08-26] MEDS: SEVELAMER 2.4 GM POWD.PACK PO SCH ×3 (07:00→16:00)
[2017-08-26 07:18] LABS: ALANINE AMINOTRANSFERASE 109 U/L (12-78); ALBUMIN 2.5 g/dL (3.4-5.0); ANION GAP 15 mmol/L (5-15); CALCIUM 8.5 mg/dL (8.5-10.1); CHLORIDE 97 mmol/L (98-107); CREATININE 8.66 mg/dL (0.7-1.3)
[2017-08-26 07:19] LABS: BASOPHILS # (AUTO) 0.05 x10^3/uL (0-0.1); BASOPHILS % (AUTO) 0 % (0-1); EOSINOPHILS % (AUTO) 2 % (1-7); LYMPHOCYTES # (AUTO) 1.44 x10^3/uL (1-3.4); LYMPHOCYTES % (AUTO) 12 % (22-44); MD NO; MEAN CORPUSCULAR HEMOGLOBIN 30.7 pg (27.5-34.5); MEAN CORPUSCULAR HGB CONC 33.4 g/dL (33.2-36.2); MEAN PLATELET VOLUME 9.6 fL (7.4-10.4); MONOCYTES # (AUTO) 1.13 x10^3/uL (0.2-0.8); MONOCYTES % (AUTO) 10 % (2-9); NEUTROPHILS # (AUTO) 8.93 x10^3/uL (1.8-6.8); NEUTROPHILS % (AUTO) 76 % (42-75); PLATELET COUNT 186 x10^3/uL (130-400); RED BLOOD COUNT 3.56 x10^6/uL (4.38-5.82); RED CELL DISTRIBUTION WIDTH 18.7 % (9.4-14.8)
[2017-08-26 07:20] LABS: ALKALINE PHOSPHATASE 235 U/L (45-117); BILIRUBIN,TOTAL 4.7 mg/dL (0.2-1.0); TOTAL PROTEIN 6.8 g/dL (6.4-8.2)
[2017-08-26 08:05] LABS: INTERNATIONAL NORMALIZED RATIO 1.42 (0.93-1.1); PROTHROMBIN TIME 14.7 Seconds (9.6-11.5)
[2017-08-26] MEDS ORDERED: LIDOCAINE-MPF 1%, 5ML ONE (12:36)
[2017-08-26] MEDS ORDERED: FENTANYL PF 100 MCG/2ML ONE (12:44)
[2017-08-26] MEDS ORDERED: MIDAZOLAM 1 MG/ML, 5ML ONE (12:44)
[2017-08-26] MEDS: CEFTRIAXONE 2,000 MG in DEXTROSE 5% 50 ML IVPB SCH (19:47)
[2017-08-27] MEDS: METRONIDAZOLE PMX 500MG/100ML 100 ML IV SCH ×2 (01:34→10:05)
[2017-08-27 02:33] VITALS: BP 110/65
[2017-08-27] MEDS: POLYETHYLENE GLYCOL 17 GM PACKET PO PRN (05:37)
[2017-08-27 05:47] LABS: BASOPHILS # (AUTO) 0.05 x10^3/uL (0-0.1); BASOPHILS % (AUTO) 1 % (0-1); EOSINOPHILS # (AUTO) 0.22 x10^3/uL (0-0.4); EOSINOPHILS % (AUTO) 2 % (1-7); LYMPHOCYTES # (AUTO) 1.55 x10^3/uL (1-3.4); LYMPHOCYTES % (AUTO) 14 % (22-44); MD NO; MEAN CORPUSCULAR HEMOGLOBIN 31.7 pg (27.5-34.5); MEAN CORPUSCULAR HGB CONC 34.3 g/dL (33.2-36.2); MEAN CORPUSCULAR VOLUME 92.4 fL (81-97); MEAN PLATELET VOLUME 9.5 fL (7.4-10.4); MONOCYTES # (AUTO) 1.16 x10^3/uL (0.2-0.8); MONOCYTES % (AUTO) 11 % (2-9); NEUTROPHILS # (AUTO) 7.91 x10^3/uL (1.8-6.8); NEUTROPHILS % (AUTO) 73 % (42-75); PLATELET COUNT 172 x10^3/uL (130-400); RED BLOOD COUNT 3.57 x10^6/uL (4.38-5.82); RED CELL DISTRIBUTION WIDTH 19.4 % (9.4-14.8)
[2017-08-27 05:58] LABS: ALANINE AMINOTRANSFERASE 111 U/L (12-78); ALBUMIN 2.6 g/dL (3.4-5.0); ANION GAP 9 mmol/L (5-15); CALCIUM 8.3 mg/dL (8.5-10.1); CHLORIDE 97 mmol/L (98-107); CREATININE 5.58 mg/dL (0.7-1.3)
[2017-08-27 06:00] LABS: ALKALINE PHOSPHATASE 233 U/L (45-117); TOTAL PROTEIN 7.1 g/dL (6.4-8.2)
[2017-08-27 07:41] VITALS: BP 122/69
[2017-08-27] MEDS: SEVELAMER 2.4 GM POWD.PACK PO SCH ×2 (08:41→11:00)
[2017-08-27 13:02] VITALS: BP 110/64
[2017-08-27] MEDS ORDERED: ceftriaxone IVPB (13:04)
[2017-08-27] MEDS ORDERED: Flagyl IVPB (13:04)
[2017-08-27] MEDS ORDERED: HEPARIN 5,000 UNITS/ML, 1ML SQ SCH (14:00)
[2017-08-27] MEDS ORDERED: PNEUMOCOCCAL 23 VACCINE IM-VACC ONE (17:00)
== END 2017-08-27 17:49 | DRG 871 ==
LOC: ED 16:57 → EDIP 16:58 → ED 17:44 → CCU 18:14 → 5SO 08-21 12:02 → 4WST 08-25 16:57
PROVIDERS: ADMIT Emergency Medicine; ATTEND Emergency Medicine
PROC: 0JH63XZ Insertion of Tunneled Vascular Access Device into Chest Subcutaneous Tissue and Fascia, Percutaneous Approach (ICD-10-PCS; principal; 2017-08-11)
PROC: 0F9430Z Drainage of Gallbladder with Drainage Device, Percutaneous Approach (ICD-10-PCS; 2017-08-11)
PROC: 05HM33Z Insertion of Infusion Device into Right Internal Jugular Vein, Percutaneous Approach (ICD-10-PCS; 2017-08-11)
PROC: B5131ZA Fluoroscopy of Right Jugular Veins using Low Osmolar Contrast, Guidance (ICD-10-PCS; 2017-08-11)
PROC: 5A1D70Z Performance of Urinary Filtration, Intermittent, Less than 6 Hours Per Day (ICD-10-PCS; 2017-08-12)
PROC: 5A1D70Z Performance of Urinary Filtration, Intermittent, Less than 6 Hours Per Day (ICD-10-PCS; 2017-08-13)
PROC: 5A1D70Z Performance of Urinary Filtration, Intermittent, Less than 6 Hours Per Day (ICD-10-PCS; 2017-08-14)
PROC: 5A1D70Z Performance of Urinary Filtration, Intermittent, Less than 6 Hours Per Day (ICD-10-PCS; 2017-08-15)
PROC: 02H633Z Insertion of Infusion Device into Right Atrium, Percutaneous Approach (ICD-10-PCS; 2017-08-18)
PROC: 5A1D70Z Performance of Urinary Filtration, Intermittent, Less than 6 Hours Per Day (ICD-10-PCS; 2017-08-18)
PROC: 5A1D70Z Performance of Urinary Filtration, Intermittent, Less than 6 Hours Per Day (ICD-10-PCS; 2017-08-20)
PROC: 0F798DZ Dilation of Common Bile Duct with Intraluminal Device, Via Natural or Artificial Opening Endoscopic (ICD-10-PCS; 2017-08-22)
PROC: 0FC98ZZ Extirpation of Matter from Common Bile Duct, Via Natural or Artificial Opening Endoscopic (ICD-10-PCS; 2017-08-22)
PROC: 5A1D70Z Performance of Urinary Filtration, Intermittent, Less than 6 Hours Per Day (ICD-10-PCS; 2017-08-22)
PROC: 5A1D70Z Performance of Urinary Filtration, Intermittent, Less than 6 Hours Per Day (ICD-10-PCS; 2017-08-24)
PROC: 30233K1 Transfusion of Nonautologous Frozen Plasma into Peripheral Vein, Percutaneous Approach (ICD-10-PCS; 2017-08-26)
PROC: 5A1D70Z Performance of Urinary Filtration, Intermittent, Less than 6 Hours Per Day (ICD-10-PCS; 2017-08-26)
DX: A41.59 Other Gram-negative sepsis (principal); N17.0 Acute kidney failure with tubular necrosis; J96.20 Acute and chronic respiratory failure, unspecified whether with hypoxia or hypercapnia; I21.4 Non-ST elevation (NSTEMI) myocardial infarction; E43 Unspecified severe protein-calorie malnutrition; G93.41 Metabolic encephalopathy; R65.21 Severe sepsis with septic shock; K80.63 Calculus of gallbladder and bile duct with acute cholecystitis with obstruction; D68.69 Other thrombophilia; E87.2 Acidosis; I50.9 Heart failure, unspecified; I11.0 Hypertensive heart disease with heart failure; D69.6 Thrombocytopenia, unspecified; I27.20 Pulmonary hypertension, unspecified; N28.1 Cyst of kidney, acquired; I48.0 Paroxysmal atrial fibrillation; I48.2 Chronic atrial fibrillation; E11.9 Type 2 diabetes mellitus without complications; K44.9 Diaphragmatic hernia without obstruction or gangrene; N20.0 Calculus of kidney; Z79.01 Long term (current) use of anticoagulants; I25.10 Atherosclerotic heart disease of native coronary artery without angina pectoris; Z95.1 Presence of aortocoronary bypass graft; K21.9 Gastro-esophageal reflux disease without esophagitis; Z66 Do not resuscitate; Z82.49 Family history of ischemic heart disease and other diseases of the circulatory system; N25.0 Renal osteodystrophy; K72.90 Hepatic failure, unspecified without coma; J44.9 Chronic obstructive pulmonary disease, unspecified; F32.9 Major depressive disorder, single episode, unspecified; E83.39 Other disorders of phosphorus metabolism; E78.00 Pure hypercholesterolemia, unspecified; E78.5 Hyperlipidemia, unspecified; E83.52 Hypercalcemia; F03.90 Unspecified dementia, unspecified severity, without behavioral disturbance, psychotic disturbance, mood disturbance, and anxiety; G47.33 Obstructive sleep apnea (adult) (pediatric); Z87.891 Personal history of nicotine dependence; Z99.2 Dependence on renal dialysis; Z23 Encounter for immunization; I08.3 Combined rheumatic disorders of mitral, aortic and tricuspid valves; Z68.28 Body mass index [BMI] 28.0-28.9, adult
CPT/HCPCS: 36415; 36556; 36565; 36580; 47490; 70450; 71045; 74018; 74022; 74176; 74328; 74340; 75984; 75989; 76937; 77001; 80053; 80162; 81001; 82306; 82533; 82550; 83605; 83690; 83735; 83970; 84100; 84145; 84443; 84484; 84550; 85025; 85610; 85730; 86022; 86704; 86706; 86850; 86900; 87040; 87070; 87075; 87076; 87077; 87081; 87086; 87186; 87205; 87340; 90732; 93005; 93306; 96374; 96375; 99292; J0696; J1644; J2185; J2250; J2405; J2704; J2710; J3010; J3490; J7198; P9047; C1725; C1729; C1750; C1751; C1769; C9113; J1610; J1642; J2060; J2370; J7030; J7040; J7050; P9017; S0028

== ENCOUNTER 2017-09-21 08:50 | Day surgery (SDC) | payer MEDICARE ==
[~2017-09-21] VITALS: Ht 177.8 cm; Wt 80.5 kg
[~2017-09-21 08:50] MED LIST changes: +ARGI500C2 PO; +ASPI-496 PO; +ATEN25TA PO; +ATOR40TA78 PO; +CHOL400C11 PO; +CYAN1TAB29 PO; +DIGO125T PO; +FURO-92 PO; +FURO20TA3 PO; +Flagyl IVPB; +GLUC1CAP18 PO; +LOSA50TA6 PO; +METF500T4 PO; +METO50TA82 PO; +MULT-658 PO; +OMEG-14 PO; +OMEP40CA6 PO; +ROSU20TA PO; +SELE50TA2 PO; +SOTA120T7 PO; +SOTA80TA8 PO; +ZINC220C5 PO; +ceftriaxone IVPB; +ferrous sulfate PO; +magnesium PO; +potassium PO; +vitamin b 6 PO
[2017-09-21 09:50] VITALS: BP 102/66
[2017-09-21] MEDS ORDERED: SODIUM CHLORIDE 0.9% 1,000 ML IV SCH (09:52)
[2017-09-21] MEDS ORDERED: FLUMAZENIL 0.1 MG/1 ML, 5ML ONE (10:20)
[2017-09-21] MEDS ORDERED: NALOXONE 1 MG/ML, 2ML ONE (10:20)
[2017-09-21] MEDS ORDERED: FENTANYL PF 100 MCG/2ML ONE (10:20)
[2017-09-21] MEDS ORDERED: MIDAZOLAM 1 MG/ML, 5ML ONE ×2 (10:20)
[2017-09-21] MEDS ORDERED: LIDOCAINE 2%, 10ML ONE (10:21)
== END 2017-09-21 12:12 ==
LOC: RAD 08:50
PROVIDERS: ATTEND Internal Medicine
DX: Z45.2 Encounter for adjustment and management of vascular access device (principal); K80.43 Calculus of bile duct with acute cholecystitis with obstruction; I13.0 Hypertensive heart and chronic kidney disease with heart failure and stage 1 through stage 4 chronic kidney disease, or unspecified chronic kidney disease; E11.22 Type 2 diabetes mellitus with diabetic chronic kidney disease; N18.9 Chronic kidney disease, unspecified; I50.9 Heart failure, unspecified; J44.9 Chronic obstructive pulmonary disease, unspecified; Z88.1 Allergy status to other antibiotic agents; Z88.0 Allergy status to penicillin; Z88.8 Allergy status to other drugs, medicaments and biological substances; Z87.891 Personal history of nicotine dependence; Z98.61 Coronary angioplasty status; Z95.1 Presence of aortocoronary bypass graft; Z98.42 Cataract extraction status, left eye; Z98.41 Cataract extraction status, right eye; Z98.890 Other specified postprocedural states
CPT/HCPCS: 36589; 77001; 99156; 99157; J2250; J3010; J3490; J7030; J2310